=== PATIENT | female | born 1995 | race Caucasian/White ===

== ENCOUNTER 2019-01-12 17:57 | Emergency (ER) | payer BC, OTHER ==
[~2019-01-12] VITALS: Ht 172.7 cm; Wt 54.4 kg
[~2019-01-12 17:57] MED LIST: NORCO 5-325 TA1 EACH PO
[2019-01-12 19:02] LABS: ABSOLUTE NEUTROPHILS 7.9 thou/uL (1.4-8.2); BASOPHILS 0.8 % (0.0-2.0); EOSINOPHILS 1.5 % (0.0-3.0); HEMATOCRIT 39.8 % (37.0-47.0); HEMOGLOBIN 13.4 gm/dL (12.0-15.0); LYMPHOCYTES 22.3 % (24.0-44.0); MCH 29.3 pg (26.0-34.0); MCHC 33.6 g/dL (28.0-37.0); MCV 87.3 fL (80.0-100.0); MONOCYTES 5.7 % (1.0-8.0); PLATELET COUNT 175 thou/uL (150-400); POLYS 69.7 % (36.0-66.0); RBC 4.56 mil/uL (4.20-5.00); RDW 13.1 % (10.5-14.5); WBC 11.4 thou/uL (4.0-11.0)
[2019-01-12 19:11] LABS: CALCIUM 9.5 mg/dL (8.5-10.1); CREATININE 0.5 mg/dL (0.6-1.0); POTASSIUM 3.9 mmol/L (3.5-5.1)
[2019-01-12 20:45] VITALS: BP 105/42
[2019-01-12] MEDS ORDERED: CARAFATE 1 GM TA1 G1 PO (20:48)
--- NOTE | 2019-01-13 08:05 | EKG ---
[place] [address] [facility] [employer] [address] ELECTROCARDIOGRAM REPORT Name: SYMONE PALAFOX Room #: DEP ZACKERY Mahoney#: [id number] ������������������ Admission: 01/12/19 ������������������ Attend Phys: Discharge: 01/12/19 ������������������ Date of : [birth year] Report #: [id number] ����������������������������������������������������������������� [id number] THIS REPORT FOR: //name// [facility] ED Test Date: 2019-01-12 Test Time: 18:04:28 Pat Name: SYMONE PALAFOX Department: Room: Gender: F Upstairs Maid: ZACH : 1995 Requested By: Jewels Payan Order Number: [id number] MD: Saleem Ribera Measurements Intervals [place] Rate: 81 P: 11 MD: 119 QRS: 55 QRSD: 97 T: 1 QT: 385 QTc: 447 Interpretive Statements Sinus rhythm Borderline short MD interval No previous ECG available for comparison Electronically Signed On 01-13-2019 8:05:03 CDT by Saleem Ribera [email or web address] ��������������������������������������������� <ELECTRONICALLY SIGNED> ���������������������������������������� By: Saleem Ribera MD ��������������������������������������������� 01/13/19 0805 1804 1804 MD BELA Caruso
== END 2019-01-12 21:07 | disposition home or self-care (01) ==
LOC: ER 17:57
PROVIDERS: Emergency Medicine
DX: R07.89 Other chest pain (principal); F17.210 Nicotine dependence, cigarettes, uncomplicated